=== PATIENT | female | born 1985 | race Caucasian/White ===

== ENCOUNTER 2018-10-08 10:08 | Emergency (ER) | payer OTHER ==
[2018-10-08 10:17] VITALS: BP 99/68
--- NOTE | 2018-10-08 10:46 | ED Physician Documentation ---
PD HPI HEENT - Stated complaint Stated Complaint: WEAKNESS/NAUSEA/VOMITING - Chief complaint Chief Complaint: Resp - History obtained from History obtained from: Patient, Family - History of Present Illness Timing - onset: How many days ago (3) Timing - duration: Days (3) Timing - details: Gradual onset, Still present Location: Throat Improves: Medication Worsens: Swalllowing Associated symptoms: Fever, Congestion, Rhinorrhea, Headache Similar symptoms before: Has not had sx before Recently seen: Not recently seen - Additional information Additional information: 33-year-old female has developed a fever sore throat and headache. Review of Systems Constitutional: reports: Fever, Chills Eyes: denies: Decreased vision Ears: denies: Ear pain Nose: reports: Rhinorrhea / runny nose, Congestion Throat: reports: Sore throat Cardiac: denies: Chest pain / pressure, Palpitations Respiratory: reports: Cough. denies: Dyspnea GI: reports: Vomiting : denies: Dysuria, Frequency PD PAST MEDICAL HISTORY - Present Medications Home Medications: Ambulatory Orders Medication Instructions Recorded Confirmed Amox/Clav 875/125 [Augmentin] 1 each PO Q12H #20 tablet 10/08/18 - Allergies Allergies/Adverse Reactions: Allergies Allergy/AdvReac Type Severity Reaction Status Date / Time No Known Drug Allergies Allergy Verified 10/08/18 10:16 PD ED PE NORMAL - Vitals Vital signs reviewed: Yes (febrile) - General General: Alert and oriented X 3, Well developed/nourished - HEENT HEENT: Atraumatic, PERRL, EOMI, Ears normal, Moist mucous membranes, Other (pharynx is with 2+ tonsils cryptic and with exudate. ) - Neck Neck: Supple, no meningeal sign, No bony TTP - Cardiac Cardiac: RRR, No murmur - Respiratory Respiratory: No respiratory distress, Clear bilaterally - Abdomen Abdomen: Soft, Non tender - Back Back: No CVA TTP, No spinal TTP - Derm Derm: Normal color, No rash - Extremities Extremities: No deformity, No edema - Neuro Neuro: Alert and oriented X 3, platform loader 2-12 intact, No motor deficit, No sensory deficit, Normal speech Eye Opening: Spontaneous Motor: Obeys Commands Verbal: Oriented GCS Score: 15 - Psych Psych: Normal mood, Normal affect Results - Vitals Vitals: Vital Signs - 24 hr 04/03/19 10:15 Temperature 37.6 C H Heart Rate 98 Respiratory 18 Rate Blood Pressure 99/68 O2 Saturation 96 Oxygen O2 Source Room air PD MEDICAL DECISION MAKING - ED course Complexity details: considered differential, d/w patient, d/w family ED course: 33-year-old female with feels ill with sore throat and fever. There have been more + strep than + flu in the past week. The patient refuses swabs of both the throat and the nose and she is administered decadron and we will put her on some augmentin. ( is out of amoxicillin today) Departure - Departure Disposition: 01 Home, Self Care Clinical Impression: Pharyngitis Qualifiers: Pharyngitis/tonsillitis etiology: unspecified etiology Qualified Code(s): J02.9 - Acute pharyngitis, unspecified Condition: Stable Instructions: ED Strep Pharyngitis Poss Follow-Up: MISSY Marquez [Provider Group] Prescriptions: Amox/Clav 875/125 [Augmentin] 1 each PO Q12H #20 tablet
[2018-10-08] MEDS: DEXAMETHASONE 10 MG/ML VIAL PO STA (11:00)
== END 2018-10-08 11:28 | disposition home or self-care (01) ==
LOC: ED 10:08
DX: J02.9 Acute pharyngitis, unspecified (principal)
CPT/HCPCS: 99283

== ENCOUNTER 2019-02-06 | Day surgery (SDC) | payer OTHER | END 2019-02-06 09:08 | disposition home or self-care (01) | PROC: 0WUF0JZ Supplement Abdominal Wall with Synthetic Substitute, Open Approach (ICD-10-PCS; principal; 2019-02-06) | DX: K42.9 Umbilical hernia without obstruction or gangrene (principal) | CPT/HCPCS: 49585; 81025; A9270; C1781; J0131; J0690; J7120 ==

== ENCOUNTER 2020-01-22 09:54 | Emergency (ER) | payer OTHER ==
[2020-01-22 10:51] LABS: BASOPHILS % (AUTO) 0.3 %; EOSINOPHILS # (AUTO) 0.5 10^3/uL (0.0-0.7); EOSINOPHILS % (AUTO) 9.1 %; HGB - HEMOGLOBIN 13.3 g/dL (12.0-16.0); LYMPHOCYTES # (AUTO) 1.6 10^3/uL (1.5-3.5); LYMPHOCYTES % (AUTO) 26.3 %; MEAN CORPUSCULAR HEMOGLOBIN 31.7 pg (27.0-31.0); MEAN CORPUSCULAR HGB CONC 34.2 g/dL (32.0-36.0); MEAN CORPUSCULAR VOLUME 92.6 fL (81.0-99.0); MEAN PLATELET VOLUME 8.6 fL (7.9-10.8); MONOCYTES # (AUTO) 0.5 10^3/uL (0.0-1.0); MONOCYTES % (AUTO) 8.6 %; NEUTROPHILS # (AUTO) 3.3 10^3/uL (1.5-6.6); NEUTROPHILS % (AUTO) 55.4 %; PLT - PLATELET COUNT 233 10^3/uL (130-450); RED CELL DISTRIBUTION WIDTH 12.7 % (12.0-15.0); WHITE BLOOD COUNT 5.9 x10^3/uL (4.8-10.8)
[2020-01-22 11:06] LABS: BILIRUBIN,URINE NEGATIVE (NEGATIVE); GLUCOSE, URINE (UA) NEGATIVE (NEGATIVE); KETONES,URINE (UA) NEGATIVE (NEGATIVE); LEUKOCYTE ESTERASE, URINE NEGATIVE (NEGATIVE); NITRITE,URINE NEGATIVE (NEGATIVE); OCCULT BLOOD,URINE NEGATIVE (NEGATIVE); PROTEIN,URINE NEGATIVE (NEGATIVE); UROBILINOGEN,URINE 0.2 (NORMAL) E.U./dL (NORMAL)
[2020-01-22 11:08] LABS: CLARITY,URINE CLEAR (CLEAR)
[2020-01-22 11:09] LABS: ALBUMIN 3.3 g/dL (3.2-5.5); ALBUMIN/GLOBULIN RATIO 1.1 (1.0-2.2); BILIRUBIN,TOTAL 0.7 mg/dL (0.2-1.0); CALCIUM 8.5 mg/dL (8.5-10.3); CREATININE 0.6 mg/dL (0.4-1.0); TOTAL PROTEIN 6.4 g/dL (6.7-8.2)
[2020-01-22] MEDS ORDERED: KETOROLAC 15 MG/ML VIAL IVP STA (12:24)
--- NOTE | 2020-01-22 12:28 | ED Physician Documentation ---
PD HPI FEMALE - Stated complaint Stated Complaint: FEMALE /SPOTTING - Chief complaint Chief Complaint: General - History obtained from History obtained from: Patient - History of Present Illness Timing - onset: Yesterday Timing - details: Abrupt onset, Still present (noted onset of lower abd cramping to sharp pains both left and right, onset yesterday and having some spotting red blood with wiping after urination. No vaginal discharge. Not sexually active recently.), Intermittant Associated symptoms: Vaginal bleeding (spotting). No: Fever, Vaginal discharge, Genital sore/lesion, Dysuria, Urinary frequency Contributing factors: (16 weeks by dates.) OB-PHOTO LAB SPECIALIST History: G (3), P (2). No: Miscarriage(s) Review of Systems Constitutional: denies: Fever, Chills, Myalgias Nose: denies: Rhinorrhea / runny nose, Congestion Throat: denies: Sore throat Respiratory: denies: Cough GI: reports: Abdominal Pain, Nausea. denies: Vomiting, Diarrhea : reports: Vaginal bleeding (spotting since yesterday. Not enough for pads, just noted mainly with wiping.). denies: Dysuria, Frequency, Discharge Skin: denies: Rash, Lesions PD PAST MEDICAL HISTORY - Past Medical History Past Medical History: Yes Cardiovascular: None Respiratory: None Endocrine/Autoimmune: None GI: None : None HEENT: None Psych: None Derm: None - Past Surgical History Past Surgical History: No /PHOTO LAB SPECIALIST: section - Present Medications Home Medications: Ambulatory Orders Medication Instructions Recorded Confirmed Loratadine [Claritin] 10 mg PO DAILY 02/04/19 02/04/19 Naproxen Sodium [Aleve] 220 mg PO DAILY PRN 02/04/19 02/04/19 Docusate Sodium 250Mg Capsule 250 mg PO DAILY #10 capsule 02/06/19 [Colace 250Mg Capsule] HYDROcod/ACETAM 5/325 [[place] 5/325] 1 each PO Q4H #20 tablet 02/06/19 - Allergies Allergies/Adverse Reactions: Allergies Allergy/AdvReac Type Severity Reaction Status Date / Time No Known Drug Allergies Allergy Verified 01/22/20 09:59 - Social History Does the pt smoke?: No Smoking Status: Never smoker Does the pt drink ETOH?: No Does the pt have substance abuse?: No - Immunizations Immunizations are current?: No - POLST Patient has POLST: No PD ED PE NORMAL - Vitals Vital signs reviewed: Yes - General General: Alert and oriented X 3, No acute distress, Well developed/nourished - Cardiac Cardiac: RRR, No murmur - Respiratory Respiratory: Clear bilaterally - Abdomen Abdomen: Normal bowel sounds, Soft, No organomegaly, Other (abd fullness lower abd c/w . not tender. Fundus at 16 cm. No tenderness right lateral abd. Some tender right and left lower/suprapubic area (I would expect appendix higher at this point in ). ) - Female Female : Deferred - Rectal Rectal: Deferred - Back Back: No CVA TTP - Derm Derm: Normal color Results - Vitals Vitals: Vital Signs - 24 hr 01/22/20 01/22/20 09:59 12:48 Temperature 37 C Heart Rate 75 65 Respiratory 16 18 Rate Blood Pressure 103/65 90/63 O2 Saturation 98 96 Oxygen O2 Source Room air - Labs Labs: Laboratory Tests 01/22/20 01/22/20 01/22/20 10:13 10:37 10:37 WBC 5.9 RBC 4.20 Hgb 13.3 Hct 38.9 MCV 92.6 MCH 31.7 H MCHC 34.2 RDW 12.7 Plt Count 233 MPV 8.6 Neut # (Auto) 3.3 Lymph # (Auto) 1.6 [place] # (Auto) 0.5 Eos # (Auto) 0.5 Baso # (Auto) 0.0 Absolute Nucleated RBC 0.00 Nucleated RBC % 0.0 Sodium 137 Potassium 3.7 Chloride 108 Carbon Dioxide 22 Anion Gap 7.0 BUN 14 Creatinine 0.6 Estimated GFR (MDRD) 114 Glucose 93 Calcium 8.5 Total Bilirubin 0.7 AST 12 ALT 10 Alkaline Phosphatase 51 Total Protein 6.4 L Albumin 3.3 Globulin 3.1 Albumin/Globulin Ratio 1.1 Lipase 35 HCG, Quant Urine Color YELLOW Urine Clarity CLEAR Urine pH 7.0 Ur Specific [place] <=1.005 Urine Protein NEGATIVE Urine Glucose (UA) NEGATIVE Urine Ketones NEGATIVE Urine Occult Blood NEGATIVE Urine Nitrite NEGATIVE Urine Bilirubin NEGATIVE Urine Urobilinogen 0.2 (NORMAL) Ur Leukocyte Esterase NEGATIVE Ur Microscopic Review NOT INDICATED Urine Culture Comments NOT INDICATED Blood Type 01/22/20 01/22/20 10:37 10:37 WBC RBC Hgb Hct MCV MCH MCHC RDW Plt Count MPV Neut # (Auto) Lymph # (Auto) [place] # (Auto) Eos # (Auto) Baso # (Auto) Absolute Nucleated RBC Nucleated RBC % Sodium Potassium Chloride Carbon Dioxide Anion Gap BUN Creatinine Estimated GFR (MDRD) Glucose Calcium Total Bilirubin AST ALT Alkaline Phosphatase Total Protein Albumin Globulin Albumin/Globulin Ratio Lipase HCG, Quant 159.93 Urine Color Urine Clarity Urine pH Ur Specific [place] Urine Protein Urine Glucose (UA) Urine Ketones Urine Occult Blood Urine Nitrite Urine Bilirubin Urine Urobilinogen Ur Leukocyte Esterase Ur Microscopic Review Urine Culture Comments Blood Type A POSITIVE PD MEDICAL DECISION MAKING - ED course Complexity details: reviewed results (Nursing got 120s FHR by doppler. Bedside U/S by me showed clear FHB (appearing 4 chamber) with size c/w dates. Unable to explain the quant HCG being so low at 159. But exam appears normal, so did not feel need to repeat it. ), considered differential (consider dislodging of mucous plug for spotting. Pain from that or consider round ligament pain. She is not tender right abd locally so low suspicion for appy. No UTI. bedside U/S showing normal IUP with FHR 120-130 and mild movement. No pelvic free fluid. Certainly concern of threatened miscarriage), d/w patient Departure - Departure Disposition: 01 Home, Self Care Clinical Impression: Bilateral lower abdominal cramping Qualifiers: Weeks of gestation: 16 weeks Qualified Code(s): Z3A.16 - 16 weeks gestation of Condition: Stable Record reviewed to determine appropriate education?: Yes Follow-Up: Junior Walters ARNP [Primary Care Provider] - Comments: Your bedside ultrasound appears normal at this time. Urine is normal as well. This may be round ligament pain with stretching of the ligaments. You can use some Tylenol every 4 hours if needed for pains. At this point in you could use some ibuprofen 2-3 times a day for a few days as well. No ibuprofen after about 30 weeks of . Tylenol is good through all of . Recheck if persistent discomfort or spotting over 2 to 3 days or if you have increased pain or bleeding or any fever vomiting etc. Discharge Date/Time: 01/22/20 12:48
[2020-01-22 12:49] VITALS: BP 90/63
== END 2020-01-22 12:48 | disposition home or self-care (01) ==
LOC: ED 09:54
DX: O26.892 Other specified pregnancy related conditions, second trimester (principal); R10.31 Right lower quadrant pain; R10.32 Left lower quadrant pain; O26.852 Spotting complicating pregnancy, second trimester; Z3A.16 16 weeks gestation of pregnancy
CPT/HCPCS: 36415; 80053; 81001; 81003; 83690; 84702; 85025; 86900; 86901; 87086; 96374; 99284